=== PATIENT | male | born 1985 | race Caucasian/White ===

== ENCOUNTER 2019-03-23 13:01 | Emergency (ER) | payer OTHER ==
[~2019-03-23] VITALS: Ht 167.6 cm; Wt 88.0 kg
[2019-03-23 13:07] VITALS: BP 112/72
[2019-03-23] MEDS ORDERED: HYDROcodone/acetaminophen 5mg/325mg tablet PO ONE (14:35)
[2019-03-23] MEDS ORDERED: ondansetron 4mg rapidly disintigrating tab PO ONE (14:35)
[2019-03-23] MEDS ORDERED: HYDR-4383 PO (14:37)
[2019-03-23] MEDS ORDERED: IBUP-1984 PO (14:37)
== END 2019-03-23 15:05 | disposition home or self-care (01) ==
LOC: ER 13:02
DX: S93.402A Sprain of unspecified ligament of left ankle, initial encounter (principal); X50.1XXA Overexertion from prolonged static or awkward postures, initial encounter; Y93.66 Activity, soccer; Y92.89 Other specified places as the place of occurrence of the external cause; Y99.9 Unspecified external cause status
CPT/HCPCS: 73610; 99283